=== PATIENT | male | born 1970 | race Asian ===

== ENCOUNTER 2019-01-30 08:25 | Emergency (ER) | payer SELFPAY ==
[2019-01-30] MEDS: morphine 4 MG/ML VIAL IV (08:57)
[2019-01-30] MEDS: ONDANSETRON 4 MG INJ IV (08:57)
[2019-01-30] MEDS: LIDOCAINE 1% (MDV) 20 ML INJ SC (08:57)
[2019-01-30] MEDS: PHENYLephrine (100 MCG/ML) 5ML SYG ZFS (09:34)
== END 2019-01-30 11:00 | disposition home or self-care (01) ==
LOC: E/R 08:25
DX: N48.30 Priapism, unspecified (principal)
CPT/HCPCS: 10060; 96374; 96375; 99285-25